=== PATIENT | male | born 1970 | race Caucasian/White ===

== ENCOUNTER 2019-04-10 07:24 | Day surgery (SDC) | payer OTHER, SELFPAY ==
[2019-04-07 09:30] VITALS: BMI 33.0
[2019-04-10] MEDS: sodium chloride 0.9% 1,000 ML 30 ML (07:41)
[2019-04-10 08:00] VITALS: BP 144/97; PULSE 88; RESP 18; TEMP 36.4; O2SAT 94
--- NOTE | 2019-04-10 08:57 | ANES.PREANE2 ---
Pre-Anesthetic Assessment Pre-Anesthetic Assessment: Height/Weight: Height 1.7 m Weight 95.708 kg Preop Diagnosis: s Proposed Procedure: Operation Date: 04/10/19 09:00 Proposed Procedures p Colonoscopy G0104 Z12.11(Not Applicable) - Alexander Harper MD Was Beta Michael taken within 24 hours: Yes Last intake: Intake Last Liquid Date 04/09/19 Last Liquid Time 22:00 Last Solid Date 04/08/19 Last Solid Time 22:00 Social: Social History: No tobacco Exam: Pre-Anes Outpt Exam: alert, oriented x 3, clear to auscultation bilaterally and regular rate & rhythm Airway: Submandibular: WNL Cervical ROM: WNL MP: 2 Dentition: Full History/ROS: No significant history except as noted and No significant complaints Pulmonary: Pulmonary: Sleep apnea Comments: Bipap CV/HEM: CV/HEM: HTN Hepatic: Hepatic: None reported GI: GI: GERD Metabolic: Metabolic: None reported Musc/skel: Musc/skel: None reported Neuropsych: Neuropsych: None reported Anesthetic Plan: ASA status: 2 Anesthesia: Anesthesia Evaluation and MAC Risk of > 500 ml blood loss (7ml/kg in children): No PFSH Anesthesia PFSH: Medical History (Updated 04/04/19 @ 10:09 by Alexander Harper MD) Hypertension Hypogonadism in male Severe sleep apnea Social History (Updated 04/04/19 @ 09:30 by FEROZ Melchor) Smoking and tobacco status: never smoked Alcohol intake: current Alcohol type: beer Household members: spouse Housing: House Marital status: History of recent travel: No Data Anesthesia Cardiac Studies: No Data to Display
--- NOTE | 2019-04-10 09:13 | PM.HPUD ---
H&P update H&P Update: DATE OF SURGERY/PROCEDURE: 04/10/19 DATE H&P PERFORMED: 03/29/19 H&P UPDATE INFORMATION: H&P completed within last 30 days, No changes to prior documentation and H&P is in [facility] EMR on date indicated PREOP DIAGNOSIS: s PLANNED PROCEDURE: Operation Date: 04/10/19 09:00 Proposed Procedures p Colonoscopy G0104 Z12.11(Not Applicable) - Alexander Harper MD Full H&P Perinent History: Medical/Surgical History: Medical History (Updated 04/04/19 @ 10:09 by Alexander Harper MD) Hypertension Hypogonadism in male Severe sleep apnea Family History: Family History (Updated 03/29/19 @ 14:21 by Mady Kovacs LPN) Other Diabetes Heart disease Hypertension Social History: Social History Smoking and tobacco status: never smoked Alcohol intake: current Alcohol type: beer Household members: spouse Housing: House Marital status: History of recent travel: No
[2019-04-10 09:47] VITALS: BP 125/97; PULSE 96; RESP 18; TEMP 36.3; O2SAT 94
[2019-04-10 09:57] VITALS: BP 131/93; PULSE 90; RESP 18; O2SAT 95
[2019-04-10 10:11] VITALS: BP 130/90; PULSE 90; RESP 18; O2SAT 96
== END 2019-04-10 10:13 | disposition home or self-care (01) ==
PROVIDERS: Family Provider Nurse Practitioner; Visit Provider Internal Medicine
PROC: 0DJD8ZZ Inspection of Lower Intestinal Tract, Via Natural or Artificial Opening Endoscopic (ICD-10-PCS; CPT 45378; principal; 2019-04-10 09:00)
DX: Z12.11 Encounter for screening for malignant neoplasm of colon (principal); G47.30 Sleep apnea, unspecified; I10 Essential (primary) hypertension; Z82.49 Family history of ischemic heart disease and other diseases of the circulatory system; Z83.3 Family history of diabetes mellitus; K21.9 Gastro-esophageal reflux disease without esophagitis
CPT/HCPCS: 12345; 45378; J7030

== ENCOUNTER → 2021-12-18 09:13 | Outpatient (BNVA) | payer OTHER, SELFPAY | PROVIDERS: Family Provider Nurse Practitioner; PCP Family Medicine; Visit Provider Family Medicine | DX: Z00.00 Encounter for general adult medical examination without abnormal findings (principal); G47.30 Sleep apnea, unspecified; I10 Essential (primary) hypertension; Z76.89 Persons encountering health services in other specified circumstances | CPT/HCPCS: 80053; 80061; 84153; 84443; 85025 ==

== ENCOUNTER → 2023-06-22 15:33 | Outpatient (BNVA) | payer OTHER, SELFPAY | PROVIDERS: Family Provider Nurse Practitioner; PCP Family Medicine; Visit Provider Family Medicine | DX: I10 Essential (primary) hypertension (principal); Z12.5 Encounter for screening for malignant neoplasm of prostate; E55.9 Vitamin D deficiency, unspecified | CPT/HCPCS: 80053; 80061; 82306; G0103 ==

== ENCOUNTER → 2024-07-24 10:09 | Outpatient (BNVA) | payer OTHER, SELFPAY | PROVIDERS: Family Provider Nurse Practitioner; PCP Family Medicine; Visit Provider Family Medicine | DX: I10 Essential (primary) hypertension (principal); F41.9 Anxiety disorder, unspecified; Z12.5 Encounter for screening for malignant neoplasm of prostate; R79.89 Other specified abnormal findings of blood chemistry; M10.9 Gout, unspecified | CPT/HCPCS: 80053; 80061; 84550; 85025; G0103 ==

== ENCOUNTER 2025-01-06 09:35 | Emergency (ER) | payer OTHER, SELFPAY ==
[2025-01-06 09:40] VITALS: BP 148/78; PULSE 113; RESP 17; TEMP 36.7; O2SAT 97; BMI 33.4
--- NOTE | 2025-01-06 09:44 | XRR_ITS ---
PROCEDURE INFORMATION: Exam: XR Right Foot Exam date and time: 01/06/2025 9:54 AM Age: 54 years old Clinical indication: Pain; Foot; Right; Additional info: RT foot pain/swelling after twisting injury; Pain to top of RT foot near base of 2nd, 3rd, 4th digits TECHNIQUE: Imaging protocol: Radiologic exam of the right foot. Views: 3 or more views. COMPARISON: No relevant prior studies available. FINDINGS: Bones/joints: Mild interphalangeal articular surface narrowing and spurring. Fractures through the base of the 2nd and 4th metatarsals, likely fracture of the base of the 3rd metatarsal. Soft tissues: Normal. XR/XR foot RT min 3V* [id number] IMPRESSION: Lisfranc fractures.
--- OUTSIDE RECORDS SUMMARY | 2025-01-06 09:44 | XMS_ITS | Encounter Summary ---
Author Organization [facility] Address [address] [facility] [place] [address] Care Team Providers Care Business Data Analyst Name Role Phone Unavailable Primary Care Provider Unavailabl e Encounter Details Date Type Department Care Team (Latest Contact Info) Description 09/19/1997 Outpatient Historical [facility] Allergy and Asthma- National [address] [place] [address] Maury Flores MD NO ADDRESS ON FILE Chronic rhinitis (Primary Dx) Social History Tobacco Use Types Packs/Day Years Used Date Smoking Tobacco: Never Assessed Sex and Gender Information Value Date Recorded Sex Assigned at Not on file 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
--- OUTSIDE RECORDS SUMMARY | 2025-01-06 09:44 | XMS_ITS | Clinical Summary ---
Author Organization [facility] Address [address] [place] [address] Attn: Epic Prelude ADT [place] [address] Care Team Providers Care Spray Machine Operator Name Role Phone Unavailable Primary Care Provider Unavailabl e Allergies Active Allergy Reactions Criticality Noted Date Comments Oxycodone-Acetaminophen Itching Medium 10/25/2009 Penicillins Other (See Comments) 10/17/2009 Mother said allergic Social History Tobacco Use Types Packs/Day Years Used Date Smoking Tobacco: Former Cigarettes Q uit: 10/18/2007 Comments:Quit smoking: socia l Alcohol Use Standard Drinks/Week Comments Yes 0 (1 standard drink = 0.6 oz pur e alcohol) Sex and Gender Information Value Date Recorded Sex Assigned at Not on file 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 Gender Identity Not on file Sexual Orientation Not on file Plan of Treatment Health Maintenance Due Date Last Done Comments DTAP/TDAP/TD VACCINES (1 - Tdap) 1987 HEPATITIS B VACCINES (1 of 3 - 19+ 3-dose series) 03/26 COLORECTAL SCREENING 2013 Colorectal Cancer Screening 2013 FIT-DNA Q 3 years 2013 FIT/FOBT Q 1 year 2013 Flex Sig/CT Colonography Q 5 years 2013 ZOSTER VACCINE (1 of 2) 2018 INFLUENZA VACCINE (#1) 2024 Medical Devices Implanted Type Area Music Artist Device Identifier Shelf Expiration Date Model / Serial / Lot Log [id number] - Arthrex Acl Tray - 1 - Button Retro 20mm Ar-1588-20 Implanted:Qty: 1 on 10/25/2009 [place] Left: Knee [employer] 08/22/2014 AR-1588-20 / / [id number] Log [id number] - Bone & Biologicals - 1 - Tendon Tibialis Anterior [id number] Implanted:Qty: 1 on 10/25/2009 [place] Left: Knee [employer] 08/06/2014 [id number] / / ID# [id number] Log [id number] - Arthrex Acl Tray - 1 - Screw Retro [id number] Implanted:Qty: 1 on 10/25/2009 [place] Left: Knee [employer] 05/24/2011 [id number] / / [id number] Description:[id number] Log [id number] - Arthrex Acl Tray - 1 - Staple Ligament Spkd 8x20mm Ar-1008 Implanted:Qty: 1 on 10/25/2009 [place] Left: Knee [employer] 02/22/2014 AR-1008 / / [id number]
--- OUTSIDE RECORDS SUMMARY | 2025-01-06 09:44 | XMS_ITS | Encounter Summary ---
Author Organization [facility] Address [address] [place] [facility] [place] [address] Care Team Providers Care Work Order Clerk Name Role Phone Unavailable Primary Care Provider Unavailabl e Encounter Details Date Type Department Care Team (Latest Contact Info) Description 12/19/1997 Outpatient Historical [facility] Allergy and Asthma- National [address] [place] [address] aMury Flores MD NO ADDRESS ON FILE Chronic rhinitis (Primary Dx) Social History Tobacco Use Types Packs/Day Years Used Date Smoking Tobacco: Never Assessed Sex and Gender Information Value Date Recorded Sex Assigned at Not on file 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
--- OUTSIDE RECORDS SUMMARY | 2025-01-06 09:44 | XMS_ITS | Encounter Summary ---
Author Organization [facility] Address [address] [place] [facility] [place] [address] Care Team Providers Care Collar Tailor Name Role Phone Unavailable Primary Care Provider Unavailabl e Encounter Details Date Type Department Care Team (Latest Contact Info) Description 08/29/1997 Outpatient Historical [facility] Stanley Holden MD [address] [place] [address] Chronic rhinitis (Primary Dx) Social History Tobacco Use Types Packs/Day Years Used Date Smoking Tobacco: Never Assessed Sex and Gender Information Value Date Recorded Sex Assigned at Not on file 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
--- OUTSIDE RECORDS SUMMARY | 2025-01-06 09:45 | XMS_ITS | Clinical Summary ---
Author Organization [facility] Address [address] [place] [address] Care Team Providers Care Brick Yard Hand Name Role Phone Unavailable Primary Care Provider Unavailabl e Allergies Active Allergy Reactions Criticality Noted Date Comments Oxycodone-Acetaminophen Itching Medium 10/25/2009 Penicillins Other (See Comments) 10/17/2009 Mother said allergic Medications cetirizine (ZYRTEC) 10 mg Oral tablet Take 10 mg by mouth daily. Active oxyCODONE-acetam inophen (PERCOCET) 5-325 mg Oral tablet Take 2 Tabs by mouth every 4 hours as needed. 60 Tab 0 10/25/2009 Active naproxen (NAPROSYN) 500 mg Oral tablet Take 1 Tab by mouth 2 times daily with meals. 60 Tab 1 10/25/2009 Active HYDROcodone-acet aminophen (NORCO) 5-325 mg Oral tablet Take 2 Tabs by mouth every 4 hours as needed for Pain. 60 Tab 0 10/25/2009 Active olmesartan (BENICAR) 20 mg Oral tablet Take 20 mg by mouth daily. Active amLODIPine (NORVASC) 10 mg Oral tablet Take 10 mg by mouth daily. 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 Gender Identity Not on file Sexual Orientation Not on file Last Filed Vital Signs Vital Sign Reading Time Taken Comments Blood Pressure 123/91 05/19/2010 10:40 AM CDT Pulse 92 05/19/2010 10:40 AM CDT Temperature 36.1 C (97 F) 10/25/2009 12:33 PM CDT Respiratory Rate 16 10/25/2009 1:35 PM CDT Oxygen Saturation 99% 10/25/2009 1:35 PM CDT Inhaled Oxygen Concentration - - Weight 86.2 kg (190 lb) 05/19/2010 10:40 AM CDT Height 172.7 cm (5' 8 ) 05/19/2010 10:40 AM CDT Body Mass Index 28.89 05/19/2010 10:40 AM CDT Plan of Treatment Health Maintenance Due Date [...] (#1) 2024 Medical Devices Implanted Type Area Planning Rn Device Identifier Shelf Expiration Date Model / Serial / Lot Log [id number] - Arthrex Acl Tray - 1 - Button Retro 20mm Ar-1588-20 Implanted:Qty: 1 on 10/25/2009 at [facility] [place] Left: Knee [employer] 08/22/2014 AR-1588-20 / / [id number] Log [id number] - Bone & Biologicals - 1 - Tendon Tibialis Anterior [id number] Implanted:Qty: 1 on 10/25/2009 at [facility] [place] Left: Knee [employer] 08/06/2014 [id number] / / ID# [id number] Log [id number] - Arthrex Acl Tray - 1 - Screw Retro [id number] Implanted:Qty: 1 on 10/25/2009 at [facility] [place] Left: Knee [employer] 05/24/2011 [id number] / / [id number] Description:[id number] Log [id number] - Arthrex Acl Tray - 1 - Staple Ligament Spkd 8x20mm Ar-1008 Implanted:Qty: 1 on 10/25/2009 at [facility] Staple Left: Knee [employer] 02/22/2014 [id number]-1008 / / [id number] Insurance [address] [place] [address] [facility] Advance Directives For more information, please contact: [phone] * Full Code (Latest Code Status on File) Date Activated Date Inactivated Comments 10/25/2009 9:45 AM 10/26/2009 2:32 AM * Full Code Date Activated Date Inactivated Comments 10/25/2009 9:03 AM 10/25/2009 9:45 AM
--- OUTSIDE RECORDS SUMMARY | 2025-01-06 09:45 | XMS_ITS | Encounter Summary ---
Author Organization [facility] Address [address] [place] [address] Care Team Providers Care Interactive Developer Name Role Phone Unavailable Primary Care Provider Unavailabl e Encounter Details Date Type Department Care Team (Latest Contact Info) Description 10/10/1997 Outpatient Historical [facility] Allergy and Asthma- National [address] [place] [address] Maury Flores MD NO ADDRESS ON FILE Allergic rhinitis, cause unspecified (Primary Dx); Other chronic allergic conjunctivitis Social History Tobacco Use Types Packs/Day Years Used Date Smoking Tobacco: Never Assessed Sex and Gender Information Value Date Recorded Sex Assigned at Not on file 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
--- NOTE | 2025-01-06 10:24 | ED_ITS ---
HPI - Extremity Problem General: Chief complaint: Extremity Injury, Lower Stated complaint: rt foot inj Time Seen by Provider: 01/06/25 10:28 History of Present Illness: 54-year-old male presents to the emergen cy room complaining of right foot pain he inverted his foot while moving some heavy objects last night has severe pain in the mid foot with some bruising and swelling no other injury no pain at the ankle. Related Data Previous Rx's ?Medication ?Instructions ?Recorded colchicine 0.6 mg tablet 0.6 mg PO BID #10 tabs 11/11 amlodipine 10 mg tablet See Rx Instructions .Route 0 07/24/24 .COMPLEX #90 tabs chlorthalidone 25 mg tablet 25 mg PO DAILY #90 tabs citalopram 10 mg tablet See Rx Instructions .Route 0 07/24/24 .COMPLEX #90 tabs losartan 100 mg tablet See Rx Instructions .Route 0 07/24/24 .COMPLEX #90 tabs hydrocodone 5 mg-acetaminophen 325 1 tab PO Q6H PRN pa in #10 tabs 01/06/25 mg tablet Allergies Allergy/AdvReac Type Severity Reaction Status Date / Time celecoxib (From Celebrex) Allergy Unknown Verified 07/24/24 09:47 Penicillins Allergy Unknown Verified 07/24/24 09:47 Review of Systems Musc: Reports: joint pain and joint swelling PFSH ED PFSH: Medical History Screen for colon cancer Hypogonadism in male Hypertension Severe sleep apnea Surgical History History of appendectomy History of arthroscopic knee surgery Family History Other Diabetes Heart disease Hypertension Social History Smoking and tobacco/nicotine status: never used tobacco/nicotine Alcohol intake: current Alcohol intake frequency: few times a week Alcohol type: beer Substance/Drug Use: never Household members: spouse Housing: House Marital status: Physical Exam Const: COMMON NORMALS: no acute distress GENERAL APPEARANCE: cooperative and comfortable ORIENTATION/CONSCIOUSNESS: Yes awake, Yes oriented to person, Yes oriented to place and Yes oriented to time HENMT: COMMON NORMALS: normocephalic, atraumatic and hearing grossly normal bilaterally HEAD & SCALP: normocephalic and atraumatic Resp: COMMON NORMALS: normal respiratory effort, No retractions, No use of accessory muscles and clear to auscultation bilaterally AUSCULTATION: clear to auscultation bilaterally Neuro: SENSORIUM/ORIENTATION: Yes oriented to person, Yes oriented to place and Yes oriented to time OTHER: Examination of the right foot foot shows moderate swelling of the dorsum of the foot early ecchymosis dorsalis pedis posterior tibialis pulse normal. Sensation normal. No obvious deformity no lacerations no tenting of the skin Skin: COMMON NORMALS: no rashes or lesions noted GENERAL SKIN EXAM: no rashes or lesions noted Course Vital Signs: Vital signs: Vital Signs Temperature 98.0 F 01/06/25 09:40 Pulse Rate 113 H 01/06/25 09:40 Respiratory Rate 17 01/06/25 09:40 Blood Pressure 148/78 01/06/25 09:40 Pulse Oximetry 97 01/06/25 09:40 Oxygen Delivery Me thod Room Air 01/06/25 09:40 MDM - Extremity (Nontraumatic) Medical Decision Making X-ray shows Lisfranc fracture based on my interpretation and believe it is a 2nd, 3rd and 4th as well as on the clinical exam at the bedside. Will discharge patient home splint to foot he has already been using crutches strongly encouraged not to bear any weight so as not to displace the fracture. Discussed Dr. Phillips she asked that we get a CT for planning for care for the fractures. Will discharge home elevate ice nonweightbearing. Lab Data Radiology Impressions Foot X-Ray 01/06/25 09:44 IMPRESSION: Lisfranc fractures. All radiology interpretation(s) finalized by discharge ED provider radiology interpretation(s): Lisfranc fractures proximal 2nd, 3rd and 4th metatarsals noted no displacement Discharge Plan Discharge Patient Disposition: Home Clinical Impression: Lisfranc fracture Condition: Stable Prescriptions: New hydrocodone-acetaminophen 5-325 mg tablet 1 tab PO Q6H PRN (Reason: pain) Qty: 10 0RF No Action chlorthalidone 25 mg tablet 25 mg PO DAILY Qty: 90 3RF amlodipine 10 mg tablet See Rx Instructions .ROUTE .COMPLEX Qty: 90 3RF Dose Instruction: TAKE 1 TABLET BY MOUTH EVERY DAY Rx Instructions: TAKE 1 TABLET BY MOUTH EVERY DAY citalopram 10 mg tablet See Rx Instructions .ROUTE .COMPLEX Qty: 90 3RF Dose Instruction: TAKE 1 TABLET BY MOUTH EVERY DAY Rx Instructions: TAKE 1 TABLET BY MOUTH EVERY DAY losartan 100 mg tablet See Rx Instructions .ROUTE .COMPLEX Qty: 90 3RF Dose Instruction: TAKE 1 TABLET BY MOUTH EVERY DAY Rx Instructions: TAKE 1 TABLET BY MOUTH EVERY DAY colchicine 0.6 mg tablet 0.6 mg PO BID Qty: 10 2RF Discharge Orders: Discharge ED (Routine); Ordered 01/06/25 Ordered By: Tyrone Burrell Referrals: Simon Martinez, [Primary Care Provider, Family Practice] Discharge Diet: Usual diet Discharge Activity: Limit activity as instructed Patient Instructions: Opioid Safety, Pain Management, Patient Portal & Noa Instructions Activity Restrictions/Additional Instructions: [facility]. It is very important that you follow up as instructed or that you return to the Emergency Department should you have concerns or if your condition changes or worsens in any way. Emergency department visits are focused on emergent conditions, in some cases you may require further evaluation on an outpatient basis. You were seen in the emergency room after a foot injury. You have fractures of the proximal 2nd, 3rd and 4th metatarsals. This is called a Lisfranc fracture. It is very important that you have no weightbearing on that foot at all you are placed in a posterior splint continue to use your crutches elevate and apply ice. I discussed your case with the cyber transport systems specialist on-call Dr. Phillips she will see you in the office next week case management will make the arrangements. (Please note that included in your discharge packet is information concerning opioid safety and pain management. This information is given to all patients were discharged from the ER regardless of their discharge diagnosis or the medicines they usually take or are prescribed.) Print Language: Turkish Coding Level of Care Code ED Deli/Bakery Associate for Bandar Huggins
--- NOTE | 2025-01-06 10:25 | XRR_ITS ---
PROCEDURE INFORMATION: Exam: XR Right Ankle Exam date and time: 01/06/2025 10:31 AM Age: 54 years old Clinical indication: Pain; Ankle and foot; Right; Additional info: RT foot/ankle pain after twisting injury TECHNIQUE: Imaging protocol: Radiologic exam of the right ankle. Views: 3 or more views. COMPARISON: CR (LOW EXM, ) 01/06/2025 9:54 AM FINDINGS: Bones/joints: Normal. No fracture. No subluxation or dislocation. Small inferior calcaneal bone spur. Soft tissues: Unremarkable. XR/XR ankle RT min 3V* [id number] IMPRESSION: No acute findings.
--- NOTE | 2025-01-06 11:00 | CTR_ITS ---
PROCEDURE INFORMATION: Exam: CT Right Lower Extremity Without Contrast, Foot Exam date and time: 01/06/2025 11:13 AM Age: 54 years old Clinical indication: Injury or trauma; Fall; Blunt trauma; Foot; Right; Additional info: Jacqueline monie ROCHELLE TECHNIQUE: Imaging protocol: CT of the right lower extremity without contrast was performed. Exam focused on the foot. Radiation optimization: All CT scans at this facility use at least one of these dose optimization techniques: automated exposure control; mA and/or kV adjustment per patient size (includes targeted exams where dose is matched to clinical indication); or iterative reconstruction. COMPARISON: CR (LOW EXM, ) 01/06/2025 9:54 AM RADIATION DOSE METRICS: Total DLP (mGy-cm): 131.2 FINDINGS: Bones/joints: Extensive fractures through the articular base of the 1st through 4th metatarsals. Likely small chip fracture the anterior and lateral cuneiform. Soft tissues: Adjacent soft tissue swelling. CT/CT foot RT wo con* [id number] IMPRESSION: Fractures through the base of the 1st through 4th metatarsals. Likely small chip fracture from the lateral cuneiform.
--- NOTE | 2025-01-08 10:04 | DCPLANNER ---
messaged podiatry for er f/u
== END 2025-01-06 11:40 | disposition home or self-care (01) ==
PROVIDERS: Emergency Provider Family Medicine; PCP Family Medicine
DX: S92.321A Displaced fracture of second metatarsal bone, right foot, initial encounter for closed fracture (principal); S92.341A Displaced fracture of fourth metatarsal bone, right foot, initial encounter for closed fracture; X50.0XXA Overexertion from strenuous movement or load, initial encounter; I10 Essential (primary) hypertension
CPT/HCPCS: 73610; 73630; 73700; 99284

== ENCOUNTER 2025-01-08 16:40 | Outpatient (CLI) | payer OTHER, SELFPAY | END 2025-01-08 16:41 | disposition home or self-care (01) | LOC: SPT 16:42 | PROVIDERS: PCP Family Medicine; Visit Provider Podiatrist Foot & Ankle Surgery | DX: Z46.89 Encounter for fitting and adjustment of other specified devices (principal); S92.324D Nondisplaced fracture of second metatarsal bone, right foot, subsequent encounter for fracture with routine healing; X58.XXXD Exposure to other specified factors, subsequent encounter | CPT/HCPCS: L4361 ==

== ENCOUNTER → 2025-01-25 14:07 | Outpatient (BNVA) | payer OTHER, SELFPAY | PROVIDERS: PCP Family Medicine; Visit Provider Podiatrist Foot & Ankle Surgery | DX: S92.311A Displaced fracture of first metatarsal bone, right foot, initial encounter for closed fracture (principal); S92.341A Displaced fracture of fourth metatarsal bone, right foot, initial encounter for closed fracture; S92.331A Displaced fracture of third metatarsal bone, right foot, initial encounter for closed fracture; S92.321A Displaced fracture of second metatarsal bone, right foot, initial encounter for closed fracture; X58.XXXA Exposure to other specified factors, initial encounter | CPT/HCPCS: 73630 ==

== ENCOUNTER → 2025-02-19 14:18 | Outpatient (BNVA) | payer OTHER, SELFPAY | PROVIDERS: PCP Family Medicine; Visit Provider Podiatrist Foot & Ankle Surgery | DX: S92.311A Displaced fracture of first metatarsal bone, right foot, initial encounter for closed fracture (principal); S92.341A Displaced fracture of fourth metatarsal bone, right foot, initial encounter for closed fracture; S92.331A Displaced fracture of third metatarsal bone, right foot, initial encounter for closed fracture; S92.321A Displaced fracture of second metatarsal bone, right foot, initial encounter for closed fracture; X58.XXXA Exposure to other specified factors, initial encounter | CPT/HCPCS: 73630 ==